=== PATIENT | female | born 1975 | race Caucasian/White ===

== ENCOUNTER 2018-03-31 12:14 | Emergency (ER) | payer OTHER ==
[~2018-03-31] VITALS: Ht 160 cm; Wt 83.9 kg
[~2018-03-31 12:14] MED LIST: CARAFATE SU1 G/10 ML PO; IMODIUM2 MG; INTESTINEX1 CAP PO; ZANTAC150 MG PO; ZOFRAN8 MG PO
[2018-03-31] MEDS ORDERED: PHENERGAN25 MG (12:55)
== END 2018-03-31 17:21 | disposition home or self-care (01) ==
LOC: ER 12:14
DX: K29.00 Acute gastritis without bleeding (principal)

== ENCOUNTER → 2018-06-21 | Emergency (ER) | payer OTHER ==
[~2018-06-21] VITALS: Ht 162.6 cm; Wt 81.6 kg
[~2018-06-21] MED LIST changes: +PHENERGAN25 MG
== END | disposition home or self-care (01) ==
LOC: ER 12:24
DX: N30.80 Other cystitis without hematuria (principal); N39.0 Urinary tract infection, site not specified

== ENCOUNTER 2019-04-24 12:59 | Emergency (ER) | payer OTHER ==
[~2019-04-24] VITALS: Ht 162.6 cm; Wt 83.9 kg
[2019-04-24] MEDS ORDERED: MUPIROCIN15 GM TOP (15:19)
[2019-04-24] MEDS ORDERED: INTESTINEX680 M1 PO (15:19)
[2019-04-24] MEDS ORDERED: DOXYCYCLINE HY100 MG PO (15:19)
== END 2019-04-24 15:33 | disposition home or self-care (01) ==
LOC: ER 12:59
DX: L03.115 Cellulitis of right lower limb (principal)

== ENCOUNTER 2020-05-10 10:42 | Outpatient (CLI) | payer OTHER ==
[~2020-05-10 10:42] MED LIST changes: +DOXYCYCLINE HY100 MG PO; +INTESTINEX680 M1 PO; +MUPIROCIN15 GM TOP
== END 2020-05-10 11:11 | disposition home or self-care (01) ==
LOC: MRI 10:42
PROVIDERS: ATTEND Specialist
DX: M25.512 Pain in left shoulder (principal)
CPT/HCPCS: 73221

== ENCOUNTER 2023-02-04 11:18 | Emergency (ER) | payer OTHER ==
[~2023-02-04] VITALS: Ht 162.6 cm; Wt 86.2 kg
== END 2023-02-04 17:08 | disposition home or self-care (01) ==
LOC: ER 11:18
DX: L03.317 Cellulitis of buttock (principal); Z88.0 Allergy status to penicillin

== ENCOUNTER 2025-01-03 13:08 | Emergency (ER) | payer OTHER ==
[~2025-01-03] VITALS: Ht 160 cm; Wt 90.7 kg
[2025-01-03] MEDS ORDERED: KETOROLAC TROMETHAMINE 60 MG VIAL IM STA (14:10)
[2025-01-03] MEDS ORDERED: KETOROLAC TROMETHAMINE 60 MG VIAL IM ONE (14:15)
== END 2025-01-03 15:13 | disposition home or self-care (01) ==
LOC: ER 13:08
DX: S90.32XA Contusion of left foot, initial encounter (principal); S70.11XA Contusion of right thigh, initial encounter; W19.XXXA Unspecified fall, initial encounter; Y93.89 Activity, other specified; Y92.89 Other specified places as the place of occurrence of the external cause; Y99.9 Unspecified external cause status; M77.32 Calcaneal spur, left foot; E11.9 Type 2 diabetes mellitus without complications; Z88.0 Allergy status to penicillin

== ENCOUNTER 2025-02-24 13:06 | Emergency (ER) | payer OTHER ==
[~2025-02-24] VITALS: Ht 160 cm; Wt 90.7 kg
[2025-02-24] MEDS ORDERED: MOUNJARO2.5 MG/0.5 SQ (14:50)
[2025-02-24] MEDS ORDERED: FAMOtidine 10 MG/ML (4ML VIAL) IV PUSH STA (16:00)
[2025-02-24] MEDS ORDERED: PANTOPRAZOLE SODIUM 4 MG/ML REDILUIDO IV PUSH STA (16:00)
[2025-02-24] MEDS ORDERED: HYOSCYAMINE SULFATE 0.125 MG TAB.SUBL SL ONE (16:00)
[2025-02-24] MEDS ORDERED: HYOSCYAMINE SULFATE 0.125 MG TAB.SUBL ONE (16:07)
[2025-02-24] MEDS ORDERED: FAMOTIDINE/PF 20 MG/2 ML VIAL ONE (16:08)
[2025-02-24] MEDS ORDERED: PANTOPRAZOLE SODIUM 40 MG/VIAL VIAL IV STA (16:33)
[2025-02-24 18:04] LABS: BASO % 0.4 % (0.1-1.2); EOS # 0.14 (0.04-0.54); HEMATOCRIT 38.2 % (34.1-44.9); HEMOGLOBIN 13.1 g/dL (11.2-15.7); LYMPH # 1.72 (1.18-3.74); LYMPH % 24.2 % (19.3-53.1); MEAN CORPUSCULAR HEMOGLOBIN 31.4 pg (25.6-32.2); MONO # 0.51 (0.24-0.82); MONO % 7.2 % (4.7-12.5); NEUT % 66.1 % (34.0-71.1); PLATELET COUNT 308 K/uL (163-369); RED BLOOD COUNT 4.17 M/uL (3.93-5.22); RED CELL DISTRIBUTION WIDTH 12.5 % (11.6-14.4)
[2025-02-24 18:33] LABS: INR 1.16; PARTIAL THROMBOPLASTIN TIME 27.4 SECONDS (22.0-34.0); PROTHROMBIN TIME 12.5 SECONDS (9.0-11.5)
[2025-02-24 18:39] LABS: ALBUMIN 3.6 gm/dL (3.4-5.0); BILIRUBIN TOTAL 0.63 mg/dL (0.3-1.2); CALCIUM 9.1 mg/dL (8.5-10.1); CREATININE SERUM 0.75 mg/dL (0.55-1.02); GFR 81.47; GLOBULINA 4.2 G/DL (2.4-3.5); POTASSIUM 3.53 mEq/L (3.5-5.1); TOTAL PROTEIN 7.8 gm/dL (6.4-8.2)
== END 2025-02-24 18:57 | disposition home or self-care (01) ==
LOC: ER 13:45
DX: K29.70 Gastritis, unspecified, without bleeding (principal); Z88.0 Allergy status to penicillin; Z91.018 Allergy to other foods; K59.00 Constipation, unspecified; K27.9 Peptic ulcer, site unspecified, unspecified as acute or chronic, without hemorrhage or perforation
CPT/HCPCS: 36415; 96365; J3490

== ENCOUNTER 2025-08-12 12:46 | Outpatient (CLI) | payer OTHER ==
[~2025-08-12 12:46] MED LIST changes: +MOUNJARO2.5 MG/0.5 SQ
== END 2025-08-12 12:56 | disposition home or self-care (01) ==
LOC: MRI 12:46
PROVIDERS: ATTEND Specialist
DX: M25.571 Pain in right ankle and joints of right foot (principal)
CPT/HCPCS: 73721